=== PATIENT | female | born 1995 | race Caucasian/White ===

== ENCOUNTER 2024-03-19 09:39 | Day surgery (SDC) | payer MEDICAID ==
[~2024-03-19 09:39] MED LIST: Acetaminophen 325 MG TAB PO PRN; diphenhydrAMINE 25 MG CAP PO PRN
[2024-03-19] MEDS: Iron Sucrose Complex 500 MG in Sodium Chloride 0.9% 250 ML 250 ML IVPB SCH (10:25)
[2024-03-19 16:55] VITALS: BP 130/70; TEMP 98.1
== END 2024-03-19 16:56 | disposition home or self-care (01) ==
LOC: ONC/OP 09:39
PROVIDERS: ATTEND Family Medicine
DX: O99.019 Anemia complicating pregnancy, unspecified trimester (principal); D50.9 Iron deficiency anemia, unspecified; O99.820 Streptococcus B carrier state complicating pregnancy; Z3A.00 Weeks of gestation of pregnancy not specified
CPT/HCPCS: 96365; 96366; J1756; J7050